=== PATIENT | female | born 1965 | race Two or more races ===

== ENCOUNTER 2018-02-02 11:14 | Outpatient (CLI) | payer OTHER | END 2018-02-02 15:46 | disposition home or self-care (01) | LOC: SONOGRAMA 11:14 | DX: E04.1 Nontoxic single thyroid nodule (principal) ==

== ENCOUNTER 2019-04-19 09:19 | Outpatient (CLI) | payer OTHER | END 2019-04-19 14:18 | disposition home or self-care (01) | LOC: MRI 09:19 | DX: E07.89 Other specified disorders of thyroid (principal); I10 Essential (primary) hypertension; M54.15 Radiculopathy, thoracolumbar region; E04.8 Other specified nontoxic goiter ==

== ENCOUNTER 2019-05-09 10:36 | Outpatient (CLI) | payer OTHER | END 2019-05-09 17:04 | disposition home or self-care (01) | LOC: LAB 10:36 | DX: J11.1 Influenza due to unidentified influenza virus with other respiratory manifestations (principal); A49.3 Mycoplasma infection, unspecified site ==

== ENCOUNTER 2019-11-08 08:21 | Outpatient (CLI) | payer OTHER | END 2019-11-08 10:36 | disposition home or self-care (01) | LOC: LAB 08:21 | DX: N39.0 Urinary tract infection, site not specified (principal); E55.9 Vitamin D deficiency, unspecified; J06.9 Acute upper respiratory infection, unspecified; B96.0 Mycoplasma pneumoniae [M. pneumoniae] as the cause of diseases classified elsewhere; D51.1 Vitamin B12 deficiency anemia due to selective vitamin B12 malabsorption with proteinuria; E03.8 Other specified hypothyroidism; I10 Essential (primary) hypertension; D50.8 Other iron deficiency anemias; D51.8 Other vitamin B12 deficiency anemias; E72.89 Other specified disorders of amino-acid metabolism ==

== ENCOUNTER 2020-07-15 08:29 | Outpatient (CLI) | payer OTHER | END 2020-07-15 12:20 | disposition home or self-care (01) | LOC: CERTIFICAD 08:29 | DX: Z11.1 Encounter for screening for respiratory tuberculosis (principal) ==

== ENCOUNTER 2021-07-03 08:24 | Outpatient (CLI) | payer OTHER | END 2021-07-03 08:46 | disposition home or self-care (01) | LOC: LAB 08:24 | PROVIDERS: ATTEND Internal Medicine | DX: Z20.828 Contact with and (suspected) exposure to other viral communicable diseases (principal) ==

== ENCOUNTER 2021-09-01 11:18 | Outpatient (CLI) | payer OTHER | END 2021-09-01 11:26 | disposition home or self-care (01) | LOC: LAB 11:18 | PROVIDERS: ATTEND Internal Medicine | DX: E03.8 Other specified hypothyroidism (principal); Z13.29 Encounter for screening for other suspected endocrine disorder; Z12.79 Encounter for screening for malignant neoplasm of other genitourinary organs; Z13.220 Encounter for screening for lipoid disorders; E55.9 Vitamin D deficiency, unspecified; Z12.11 Encounter for screening for malignant neoplasm of colon ==

== ENCOUNTER 2021-09-24 13:45 | Outpatient (CLI) | payer OTHER | END 2021-09-24 14:00 | disposition home or self-care (01) | LOC: PPH VACUNA 13:45 | PROVIDERS: ATTEND Emergency Medicine Pediatric Emergency Medicine | DX: Z23 Encounter for immunization (principal) ==

== ENCOUNTER 2021-10-07 09:00 | Outpatient (CLI) | payer OTHER | END 2021-10-07 09:30 | disposition home or self-care (01) | LOC: PPH VACUNA 09:00 | PROVIDERS: ATTEND Emergency Medicine Pediatric Emergency Medicine | DX: Z23 Encounter for immunization (principal) ==

== ENCOUNTER 2022-01-06 09:17 | Outpatient (CLI) | payer OTHER | END 2022-01-06 14:54 | disposition home or self-care (01) | LOC: LAB 09:17 | PROVIDERS: ATTEND Internal Medicine | DX: N39.0 Urinary tract infection, site not specified (principal) ==

== ENCOUNTER 2022-01-22 14:00 | Outpatient (CLI) | payer OTHER | END 2022-01-22 14:02 | disposition home or self-care (01) | LOC: LAB 14:00 | DX: A56.8 Sexually transmitted chlamydial infection of other sites (principal); A63.8 Other specified predominantly sexually transmitted diseases; A64 Unspecified sexually transmitted disease ==

== ENCOUNTER 2022-03-15 07:50 | Outpatient (CLI) | payer OTHER | END 2022-03-15 07:56 | disposition home or self-care (01) | LOC: LAB 07:50 | PROVIDERS: ATTEND Internal Medicine Endocrinology, Diabetes & Metabolism | DX: E03.9 Hypothyroidism, unspecified (principal); E04.1 Nontoxic single thyroid nodule; E78.2 Mixed hyperlipidemia ==

== ENCOUNTER 2022-03-15 09:34 | Outpatient (CLI) | payer OTHER | END 2022-03-15 09:50 | disposition home or self-care (01) | LOC: SONOGRAMA 09:34 | PROVIDERS: ATTEND Internal Medicine | DX: E03.9 Hypothyroidism, unspecified (principal) ==